=== PATIENT | male | born 1955 | race Caucasian/White ===

== ENCOUNTER 2020-09-01 08:09 | Day surgery (SDC) | payer OTHER, SELFPAY ==
[2020-08-25 09:51] VITALS: BMI 26.7
--- NOTE | 2020-08-31 10:27 | HO.ANESPROP2 ---
Documented by User: Gayle Fuller 08/31/20 10:28 HPI - Anesthesia Eval Consult details Narrative: 65yo M for Colonoscopy [facility] Past Medical History Medical History Diabetes HTN (hypertension) Hx of hyperlipidemia Family History Family History Father No problems noted. Mother No problems noted. Surgical History Surgical History No pertinent past surgical history Social History Social History Alcohol intake: never Smoking Status: Never smoker Tobacco Type: Cigarette Advance Directives: No Advance Directives Information Provided: No Advance Directives on File: No Recently lost weight without trying: No Meds Allergies Allergy/AdvReac Type Severity Reaction Status Date / Time No Known Allergies Allergy Verified 07/11/20 08:53 Home Medications Medication Instructions Recorded Confirmed Type atorvastatin 40 mg tablet 40 mg PO DAILY 07/11/20 08/25/20 History glyburide 5 mg tablet 5 mg PO QAM 07/11/20 08/25/20 History lisinopril 40 mg tablet 40 mg PO DAILY 07/11/20 08/25/20 History metformin 1,000 mg tablet 1,000 mg PO BID 07/11/20 08/25/20 History Exam Exam Date and Time: August 31, 2020 1027 Height,Weight and Vital Signs: Height 6 ft 1 in Weight 92.079 kg Assessment and Plan Assessment Anesthesia Assessment: Chart Reviewed Documented by User: Ebony Soto 09/01/20 10:16 [facility] Past Medical History Medical History Diabetes HTN (hypertension) Hx of hyperlipidemia Family History Family History Father No problems noted. Mother No problems noted. Surgical History Surgical History No pertinent past surgical history Social History Social History Alcohol intake: never Smoking Status: Never smoker Tobacco Type: Cigarette Advance Directives: No Advance Directives Information Provided: No Advance Directives on File: No Recently lost weight without trying: No Meds Allergies Allergy/AdvReac Type Severity Reaction Status Date / Time No Known Allergies Allergy Verified 07/11/20 08:53 Home Medications Medication Instructions Recorded Confirmed Type atorvastatin 40 mg tablet 40 mg PO DAILY 07/11/20 08/25/20 History glyburide 5 mg tablet 5 mg PO QAM 07/11/20 08/25/20 History lisinopril 40 mg tablet 40 mg PO DAILY 07/11/20 08/25/20 History metformin 1,000 mg tablet 1,000 mg PO BID 07/11/20 08/25/20 History Exam Airway Mallampati Class: II TM Dist: >3cm Neck ROM: Full Loose/Missing/Broken Teeth: No Heart: RRR Lungs: CTA Assessment and Plan Assessment Anesthesia Assessment: Anesthesia Plan Discussed and Chart Reviewed Final Anesthetic Review NPO: Yes ASA Class: II Patient Risk: Low Procedure Risk: Low Anesthetic Plan Anesthetic Plan: MAC: Disposition: Standard PACU
[2020-09-01 09:17] VITALS: BP 154/83; PULSE 78; RESP 16; TEMP 36.3; O2SAT 95
[2020-09-01] MEDS: Lactated Ringers 1,000 ML 100 ML IVCONT (09:26)
[2020-09-01 09:30] LABS: Glucose, Whole Blood 107 mg/dL (60-115)
--- NOTE | 2020-09-01 09:54 | MHC.SHP ---
Pre-Procedural Eval Section B Chief Complaint: Screening Relevant Family History (Specify if Yes): No Relevant Social History: None Present Medications: see Short Stay Collaborative assessment Medical History: Significant History (Diabetes HTN (hypertension) Hx of hyperlipidemia) History of Previous Operations: No relevant previous surgery Allergies: Allergies Allergy/AdvReac Type Severity Reaction Status Date / Time No Known Allergies Allergy Verified 07/11/20 08:53 Review of Systems Sugical H&P ROS: Negative: Constitution, Cardiovascular, Respiratory, Neurological, Psychiatric, Hem-Onc, Allergic/Immunologic, Gastrointestinal, Genitourinary, Musculoskeletal, Integumentary, Endocrine and Eyes/Ears/Nose/Throat Exam Surgical H&P Exam: Normal: HEENT, Normal: Heart, Normal: Lungs, Normal: Extremities, Normal: Abdomen, Normal: Skin and Normal: Neurological Plan Diagnosis/Plan: Unchanged I have reviewed the history and physical and performed a pertinent physical examination on my patient. No changes have occurred unless specified.
--- NOTE | 2020-09-01 10:57 | P.BOP_ITS ---
Brief Operative Note Date of Service: 09/01/20 Pre-op diagnosis: screening Post-op diagnosis: same Procedure: Operative Information Procedure Description: Colonoscopy COLONOSCOPY Instrument: Olympus variable stiffness pediatric scope 190L Colonoscopy Monitoring: Vital signs and clinical assessment, continuous EKG monitoring, Pulse oximetry, Carbon Dioxide monitoring and blood pressure monitoring were done throughout the procedure. Colon withdrawal time was 18 minutes. Procedure: The patient was placed in the left lateral decubitis position and pre-procedure medications were administered. After a digital rectal examination of the ano-rectum, the video colonoscope was inserted into the rectum and advanced through the colon to the cecum/TI. The colonoscope was slowly withdrawn in a retrograde panoramic fashion and the colon mucosa was carefully examined including a retroflexed view of the rectum. Findings and interventions are described below. Procedure Difficulty:moderate due to poor prep Findings: Terminal Ileum-normal Cecum:normal Ascending Colon: normal Transverse Colon -normal Descending Colon:normal Sigmoid Colon: 5-6 mm sessiel polyp removed with cold snare Rectum: Retroflexion with small internal hemorrhoids, grade I Anorectum - normal Colon preparation: [place] Bowel Preparation Scale Right colon; 1 Transverse colon: 0 Left colon; 1 (0 = Unprepared colon segment with mucosa not seen due to solid stool that cannot be cleared. 1 = Portion of mucosa of the colon segment seen, but other areas of the colon segment not well seen due to staining, residual stool and/or opaque liquid. 2 = Minor amount of residual staining, small fragments of stool and/or opaque liquid, but mucosa of colon segment seen well. 3 = Entire mucosa of colon segment seen well with no residual staining, small fragments of stool or opaque liquid) Impression and Post Procedure Diagnosis: poor prep polyp internal hemorrhoids Plan: High fiber diet leaflet Avoid straining at stool, epsom salts and sitz bath, anusol supps or cream Repeat Colonoscopy in 6 months- 1 year with review on prep and compliance Above findings were reviewed with the patient and relevant handouts were provided if indicated. Surgeon: Shavonne Goode MD Anesthesia: MAC Estimated blood loss (mL): 0 Condition: stable Disposition: PACU
[2020-09-01 11:04] VITALS: BP 93/58; PULSE 59; RESP 16; TEMP 36; O2SAT 94
[2020-09-01 11:19] VITALS: BP 107/65; PULSE 57; RESP 16; TEMP 36.1; O2SAT 96
[2020-09-01 11:30] VITALS: PULSE 63; RESP 16; O2SAT 96
--- NOTE | 2020-09-01 12:14 | HO.POSTANES ---
Post Anesthesia Evaluation Post Anesthesia Evaluation Vital Signs: Vital Signs Temp Pulse Resp BP Pulse Ox 09/01/20 11:30 97 F 63 16 96 09/01/20 11:19 97 F 57 16 107/65 96 09/01/20 11:04 96.8 F 59 16 93/58 L 94 09/01/20 09:17 97.3 F 78 16 154/83 H 95 Anesthesia: Monitored Mental Status: Awake Pain Control: Satisfactory Nausea/Vomiting: None Hydration: Adequate Anesthesia-Related Issues: No Anes. Related Issues
== END 2020-09-01 12:37 | disposition home or self-care (01) ==
PROVIDERS: PCP Physician Assistant; Visit Provider Internal Medicine Gastroenterology
PROC: 0DJD8ZZ Inspection of Lower Intestinal Tract, Via Natural or Artificial Opening Endoscopic (ICD-10-PCS; CPT 45378; principal; 2020-09-01 10:10)
DX: Z12.11 Encounter for screening for malignant neoplasm of colon (principal); K63.5 Polyp of colon; K64.0 First degree hemorrhoids; I10 Essential (primary) hypertension; E11.9 Type 2 diabetes mellitus without complications; Z79.84 Long term (current) use of oral hypoglycemic drugs; Z79.899 Other long term (current) drug therapy
CPT/HCPCS: 45385; 82947; 88305

== ENCOUNTER → 2020-09-13 11:11 | Outpatient (BNVA) | payer OTHER, SELFPAY | PROVIDERS: PCP Physician Assistant; Visit Provider Physician Assistant ==

== ENCOUNTER 2021-09-18 10:35 | Outpatient (REF) | payer OTHER, SELFPAY ==
[2021-09-18 11:11] LABS: Hematocrit 39.5 % (42.0-52.0); Hemoglobin 13.1 g/dl (14.0-18.0); Mean Corpuscular HGB Conc 33.2 g/dl (31.0-36.0); Mean Corpuscular Hemoglobin 29.2 pg (27.0-33.0); Mean Corpuscular Volume 88.2 fL (80.0-98.0); Mean Platelet Volume 10.1 fL (9.4-12.4); Platelet Count 215 X10*3/uL (160-400); Red Blood Count 4.48 X10*6/uL (4.60-5.80)
[2021-09-18 11:39] LABS: Alanine Aminotransferase 19 U/L (0-40); Albumin Level 4.4 g/dL (3.5-5.0); Alkaline Phosphatase 52 U/L (39-117); Anion Gap 12 (12-20); Aspartate Amino Transferase 20 U/L (5-37); Bilirubin Total 0.8 mg/dL (0.0-1.0); Blood Urea Nitrogen 14 mg/dL (9-16); Calcium 10.2 mg/dL (8.4-10.2); Carbon Dioxide 26 mmol/L (22-29); Chloride 106 mmol/L (96-108); Cholesterol 136 mg/dL; Estimated Glomerular Filt Rate > 60; Glucose Fasting 153 mg/dL (60-99); HDL Cholesterol 40 mg/dL; LDL Cholesterol Calculated 64 mg/dl; Potassium 4.9 mmol/L (3.3-5.1); Sodium 139 mmol/L (135-145); Total Protein 7.2 g/dL (6.5-8.0); Triglycerides 164 mg/dL
[2021-09-18 12:01] LABS: Prostate Specific Antigen Scr 0.31 ng/mL (<0.05-4.0); TSH reflex Free T4 1.97 uIU/mL (0.32-4.0)
[2021-09-18 12:05] LABS: Creatinine Urine 79.41 mg/dL
== END 2021-09-18 10:36 | disposition home or self-care (01) ==
LOC: HO.LAB 10:35
PROVIDERS: PCP Physician Assistant; Visit Provider Physician Assistant
DX: I10 Essential (primary) hypertension (principal); E11.9 Type 2 diabetes mellitus without complications; Z12.5 Encounter for screening for malignant neoplasm of prostate
CPT/HCPCS: 36415; 80053; 80061; 82043; 84153; 84443; 85027

== ENCOUNTER 2023-12-09 08:47 | Outpatient (REF) | payer OTHER, SELFPAY ==
[2023-12-09 09:25] LABS: Hematocrit 38.5 % (42.0-52.0); Hemoglobin 12.9 g/dl (14.0-18.0); Mean Corpuscular HGB Conc 33.5 g/dl (31.0-36.0); Mean Corpuscular Hemoglobin 29.4 pg (27.0-33.0); Mean Corpuscular Volume 87.7 fL (80.0-98.0); Mean Platelet Volume 10.4 fL (9.4-12.4); Platelet Count 212 X10*3/uL (160-400); Red Blood Count 4.39 X10*6/uL (4.60-5.80); White Blood Count 6.9 X10*3/uL (4.8-10.8)
[2023-12-09 09:40] LABS: Estimated Average Glucose 160 mg/dL; Hemoglobin A1c % 7.2 % (<6.0)
[2023-12-09 10:01] LABS: Alanine Aminotransferase 21 U/L (0-40); Albumin Level 4.4 g/dL (3.5-5.0); Alkaline Phosphatase 56 U/L (39-117); Anion Gap 12 (12-20); Aspartate Amino Transferase 20 U/L (5-37); Bilirubin Total 0.8 mg/dL (0.0-1.0); Blood Urea Nitrogen 32 mg/dL (9-16); Calcium 9.6 mg/dL (8.4-10.2); Carbon Dioxide 27 mmol/L (22-29); Chloride 105 mmol/L (96-108); Cholesterol 168 mg/dL (<200); Estimated Glomerular Filt Rate 54; Glucose Fasting 177 mg/dL (60-99); HDL Cholesterol 42 mg/dL (>40); LDL Cholesterol Calculated 93 mg/dL (<100); Potassium 4.7 mmol/L (3.3-5.1); Sodium 139 mmol/L (135-145); Total Protein 7.4 g/dL (6.5-8.0); Triglycerides 169 mg/dL (<150)
[2023-12-09 10:14] LABS: Prostate Specific Antigen Scr 0.35 ng/mL (<0.05-4.0)
[2023-12-09 10:25] LABS: Creatinine Urine 79.86 mg/dL; Microalbum/Creatinine Ratio Ur 81.3 ug/mg cr (<30)
== END 2023-12-09 08:48 | disposition home or self-care (01) ==
LOC: HO.LAB 08:47
PROVIDERS: PCP Physician Assistant; Visit Provider Physician Assistant
DX: Z12.5 Encounter for screening for malignant neoplasm of prostate (principal); I10 Essential (primary) hypertension; E11.9 Type 2 diabetes mellitus without complications; E78.2 Mixed hyperlipidemia
CPT/HCPCS: 36415; 80053; 80061; 82043; 82570; 83036; 84153; 85027

== ENCOUNTER 2023-12-16 08:42 | Outpatient (AMB) | payer OTHER, SELFPAY ==
--- NOTE | 2023-12-16 09:13 | MHC.PC.OV ---
Vital Signs 12/16/23 09:14 Height 6 ft Weight 205 lb 4 oz BMI 27.8 BP 128/70 Blood Pressure Location Lt brachial Position Sitting Pulse 78 Pulse Source Pulse Oximeter Pulse Oximetry (%) 97 Oxygen Delivery Method Room Air Intake Visit Reasons: PE and lab results Inspector Tubes Required: No Accompanied by: Self / Same As Patient Allergies No Known Allergies Allergy (Verified 12/16/23 09:23) Medication List - Last Reconciled 12/16/23 by Pedro Jones PA-C atorvastatin 40 mg PO DAILY 30 days blood sugar diagnostic (FreeStyle Lite Strips) As directed glyburide 5 mg PO QAM 30 days hydrochlorothiazide 12.5 mg PO DAILY 30 days lancets (FreeStyle Lancets) As directed lisinopril 40 mg PO DAILY 30 days metformin 1,000 mg PO BID 30 days Tobacco use date assessed: 12/16/23 Fall risk assessment: No Falls in past year Last assessed Fall Risk: 12/16/23 Dental Screening Dental Screen Date: 12/16/23 Did you have a dental visit in the last 12 months?: No Did you have a dental problem in the last 6 months where you did not have access to dental care?: No Was dental information given to patient?: No (Dentures) HPI PE and lab results HPI Details Mustaf is a 68 y/o F here today for a routine annual physical ? Pmhx of HLD, DMII, HTN. ? .. ? DMII: Has been working on diet to reduce carbs and sugars.? ? Continues on metformin 1000 b.i.d and glyburide 5 mg. Most recent A1c 7.2. . ? .. ? HTN: Does check his BP at home and reports normal reading, occasional high readings though generally reports systolic blood pressures are 130.? ?Patient denies any headaches, chest discomfort, shortness of breath VAccine: UTD with PCV, TDAp, considering Shingrex Patient did have colonoscopy in 2020 (did have internal hemorrhoids) needed repeat in 1 year due to poor. [facility] Medical History Hx of hyperlipidemia Diabetes HTN (hypertension) Surgical History No pertinent past surgical history Family History Father No problems noted. Mother No problems noted. Social History Housing: Apartment Alcohol intake: never Patient Tobacco Use Status: Never used Tobacco Tobacco use type: Cigarette e-Cigarette/Vaping Use: Never Used Second Hand Smoke Exposure: No service: No Current occupational status: employed Cognitive needs: No Hearing needs: No Vision needs: No Questionnaire PHQ-9 Over the last 2 weeks, how often have you been bothered by any of the following problems? 1. Little interest or pleasure in doing things: not at all 2. Feeling down, depressed, or hopeless: not at all 3. Trouble falling or staying asleep, or sleeping too much: not at all 4. Feeling tired or having little energy: not at all 5. Poor appetite or overeating: not at all 6. Feeling bad about yourself - or that you are a failure or have let yourself or your family down: not at all 7. Trouble concentrating on things, such as reading the newspaper or watching television: not at all 8. Moving or speaking so slowly that other people could have noticed. Or the opposite - being so fidgety or restless that you have been moving around a lot more than usual: not at all 9. Thoughts that you would be better off or of hurting yourself in some way: not at all Total score: 0 Depression Screening Interpretation: Negative Depression Screening Done: Yes 25131 - PHQ-9 Billing: Yes Source: Developed by Drs. Bashir Reynoso, Eloise Santa, Rock Garcia and colleagues, with an educational helen from [employer]. Thrive Questionnaire Date Thrive assessed: 12/16/23 I am a: Patient What is your living situation today?: I have a steady place to live Within the past 12 months, did the food you bought not last and you didn't have the money to get more?: Never true Within the past 12 months, did you worry whether your food would run out before you got money to buy more?: Never true Do you have trouble paying for medicines?: No Do you have trouble getting transportation to medical appointments?: No Do you have trouble paying your heating and electricity bill?: No Do you have trouble taking care of your child, family member or friend?: No Do you have trouble with day-to-day activities such as bathing, preparing meals, shopping, managing finances, etc.?: No Are you currently unemployed and looking for a job?: No Are you interested in more education?: No Please select the resources that you would like help with: None Currently or been in a relationship where the following occur: no concerns reported THRIVE Score: 0 AUDIT C Alcohol Use Questionnaire (AUDIT-C) 1. How often do you have a drink containing alcohol?: Never 3. How often do you have six or more drinks on one occasion?: Never Total Score: 0 SOFIA-7 AMB Questionnaire SOFIA-7 Date SOFIA - 7 assessed: 12/16/23 Feeling nervous, anxious, or on edge: 0 = Not at all Not being able to stop or control worryin = Not at all Worrying too much about different things: 0 = Not at all Trouble relaxin = Not at all Being so restless that it is hard to sit still: 0 = Not at all Becoming easily annoyed or irritable: 0 = Not at all Feeling afraid as if something awful might happen: 0 = Not at all Total SOFIA-7 score (0-4 normal; 5-9 mild; 10-14 moderate; 15-21 severe): 0 Source: Developed by Drs. Bashir Reynoso, Eloise Santa, Rock Garcia and colleagues, with an educational helen from [employer]. SOFIA-7 Assessment Billing SOFIA-7 Assessment Tool: SOFIA-7 Assessment 29035 Review of Systems Const Denies body aches, Denies chills, Denies excessive sweating, Denies fatigue, Denies fever(s) and Denies headache(s) Eyes Denies blurry vision ENT Denies dysphagia, Denies vertigo, Denies dizziness, Denies headache(s), Denies hearing loss and Denies tinnitus Card Denies chest pain, Denies chest pain with activity, Denies syncope, Denies irregular heart rhythm and Denies dyspnea Resp Denies chest congestion, Denies cough, Denies hemoptysis, Denies dyspnea and Denies wheezing GI Denies abdominal pain, Denies melena, Denies hematochezia, Denies coffee ground emesis, Denies dysphagia, Denies diarrhea, Denies nausea and Denies vomiting Denies difficulty urinating, Denies dysuria, Denies urinary frequency, Denies urinary hesitancy and Denies urinary urgency Musc Denies arthralgias, Denies limited range of motion, Denies muscle cramps and Denies muscle weakness Skin/Breast Denies rash and Denies skin ulcer Neuro Denies Abnormal speech present, Denies confusion, Denies vertigo, Denies dizziness, Denies syncope, Denies headache(s), Denies memory loss and Denies seizure-like activity Psych Denies anxiety, Denies confusion, Denies depression, Denies memory loss, Denies panic attacks and Denies paranoia Endo Denies excessive sweating, Denies fatigue, Denies flushing, Denies polydipsia and Denies polyuria Aller/Immun Denies wheezing Physical exam (Primary Care) Vital Signs: Last Vital Signs Pulse 78 12/16/23 09:14 BP 128/70 12/16/23 09:14 Pulse Ox 97 12/16/23 09:14 Oxygen Delivery Method Room Air 12/16/23 09:14 BMI result Body Mass Index 27.8 Tobacco/Smoking Status: Tobacco use Status Tobacco use date assessed 12/16/23 12/16/23 09:20 Patient Tobacco Use Status Never used Tobacco 12/16/23 09:14 Tobacco use type Cigarette 12/16/23 09:14 e-Cigarette/Vaping Use Never Used 12/16/23 09:14 PHQ-9: PHQ-9 Score PHQ-9: Total score 0 12/16/23 09:25 Depression Screening Interpretation: Negative Thrive Assessment: Date of Thrive Assessment Date Thrive assessed 12/16/23 12/16/23 09:20 Currently or been in a relationship where the following occur: no concerns reported Const General: cooperative, comfortable, no acute distress, alert and awake; No confusion Orientation/consciousness: oriented to person, oriented to place, patient oriented x3 and No confusion HENMT Head: Yes normocephalic Ears: external ears normal and TM's normal bilaterally Face and sinus: No sinus tenderness Mouth: Normal oral and palatal mucosa present and tongue normal Teeth and gingiva: dentition normal and gingiva normal Throat: Yes posterior oropharynx normal, Yes tonsils normal and Yes uvula midline Eyes Conjunctivae: conjunctivae normal Sclerae: sclerae normal Pupils: Equal, round and reactive pupils present EOM: EOMs intact bilaterally Direct Ophthalmoscopy: No no photophobia Neck Neck: Yes no lymphadenopathy, No tender and Yes no JVD Thyroid: Thyroid normal Carotids: no bruits Chest Chest palpation & inspection: no tenderness Resp Effort & Inspection: normal respiratory effort, no audible wheezes, not labored and no stridor Auscultation: no crackles, no rales, no rhonchi and no wheezes Cardio Jugular venous distension: no JVD Rate: regular rate, not bradycardic and not tachycardic Rhythm: regular rhythm Bruits: no carotid bruits Peripheral pulses: Peripheral pulses 2+ throughout GI Inspection: Yes normal to inspection, No abdominal wall ecchymosis and No visible herniation Palpation (GI): Soft to palpation, nontender, no guarding, not rigid and No hepatosplenomegaly present Auscultation: normoactive bowel sounds General: Yes no CVA tenderness Back/Spine/Pelvis Back: no CVA tenderness and No back tenderness Cervical Spine: cervical ROM normal Thoracic/Lumbar Spine: thoracic and lumbar spine normal to inspection, straight leg raise negative bilaterally, No thoraco-lumbar ROM limited and No lumbar spinal tenderness Skin Lesions: no lesions Rashes: no rashes Wounds: no wounds Neuro General: oriented to person, oriented to place, patient oriented x3, CN's II-XI intact bilaterally and No confusion Cranial nerves: Yes Equal, round and reactive pupils present and Yes Normal accommodation reflex present Cognition (Neuro): normal cognition Speech: No Abnormal speech present Gait exam (Neuro): Normal gait present Motor exam (neuro): 5/5 motor strength present throughout Extrem Right upper extremity: full ROM; no cyanosis Left upper extremity: full ROM; no cyanosis Right lower extremity: no edema Left lower extremity: no edema Psych Appearance: grossly normal Mental Status: mental status grossly normal Affect: normal affect Attitude: cooperative Thought process: Normal thought process present Assessment and Plan Assessment & Plan (1) Annual physical exam: Code(s): Z00.00 - Encounter for general adult medical examination without abnormal findings (2) HTN (hypertension): Code(s): I10 - Essential (primary) hypertension Qualifiers: Hypertension type: essential hypertension Qualified Code(s): I10 - Essential (primary) hypertension Plan: Patient's blood pressure acceptable today in office. Will continue him on his current dose of lisinopril and hydrochlorothiazide. Goal blood pressure to be below 140/90 (3) DMII (diabetes mellitus, type 2): Code(s): E11.9 - Type 2 diabetes mellitus without complications Qualifiers: Diabetes mellitus complication status: without complication Diabetes mellitus terminal operations supervisor insulin use: without terminal operations supervisor use Qualified Code(s): E11.9 - Type 2 diabetes mellitus without complications Plan: Patient's type 2 diabetes suboptimally controlled with A1c is 7.2. Will continue current doses of diabetic medication. He will work on lifestyle and dietary modifications. Goal A1c to be below 7.0. (4) HLD (hyperlipidemia): Code(s): E78.5 - Hyperlipidemia, unspecified Qualifiers: Hyperlipidemia type: mixed hyperlipidemia Qualified Code(s): E78.2 - Mixed hyperlipidemia Plan: Patient continues on statin therapy without any side effect. Most recent lipid panel with acceptable LDL below 100 Orders: Orders Lipid Panel 12/16/23 E78.2 - Mixed hyperlipidemia Comprehensive Grahn. Panel Fast 12/16/23 E11.9 - Type 2 diabetes mellitus without complications Referrals Ophthalmology Referral E11.9 - Type 2 diabetes mellitus without complications Cologuard Test Z12.11 - Encounter for screening for malignant neoplasm of colon Medications: Changed From atorvastatin 40 mg PO DAILY 30 days 30 tabs 0RF E78.2 - Mixed hyperlipidemia To atorvastatin 40 mg PO DAILY 90 days 90 tabs 2RF E78.2 - Mixed hyperlipidemia From glyburide 5 mg PO QAM 30 days 30 tabs 3RF E11.9 - Type 2 diabetes mellitus without complications To glyburide 5 mg PO QAM 90 days 90 tabs 2RF E11.9 - Type 2 diabetes mellitus without complications From lisinopril 40 mg PO DAILY 30 days 30 tabs 0RF I10 - Essential (primary) hypertension To lisinopril 40 mg PO DAILY 90 days 90 tabs 2RF I10 - Essential (primary) hypertension From hydrochlorothiazide 12.5 mg PO DAILY 30 days 30 caps 0RF I10 - Essential (primary) hypertension To hydrochlorothiazide 12.5 mg PO DAILY 90 days 90 caps 2RF I10 - Essential (primary) hypertension From metformin 1,000 mg PO BID 30 days 60 tabs 0RF E11.9 - Type 2 diabetes mellitus without complications To metformin 1,000 mg PO BID 90 days 180 tabs 2RF E11.9 - Type 2 diabetes mellitus without complications Patient Instructions: Goals: Maintain blood pressure below 140/90 Barriers: Access to medication Coding Level of Care Code Est Pt Prev Care >65y(89096) Diagnoses Annual physical exam Z00.00 Essential hypertension I10 Hypertension type: essential hypertension Type 2 diabetes mellitus without complication, without long-term current use of insulin E11.9 Diabetes mellitus complication status: without complication Diabetes mellitus terminal operations supervisor insulin use: without terminal operations supervisor use Mixed hyperlipidemia E78.2 Hyperlipidemia type: mixed hyperlipidemia Additional Codes SOFIA-7 Assessment Billing - SOFIA-7 Assessment Tool: SOFIA-7 Assessment [id number] ([id number])
[2023-12-16 09:14] VITALS: BP 128/70; PULSE 78; O2SAT 97; BMI 27.8
== END 2023-12-16 09:41 | disposition home or self-care (01) ==
PROVIDERS: PCP Physician Assistant; Visit Provider Physician Assistant
DX: Z00.00 Encounter for general adult medical examination without abnormal findings (principal); I10 Essential (primary) hypertension; E11.9 Type 2 diabetes mellitus without complications; E78.2 Mixed hyperlipidemia
CPT/HCPCS: 99397

== ENCOUNTER 2024-12-16 08:04 | Outpatient (AMB) | payer MEDICARE, SELFPAY ==
--- NOTE | 2024-12-16 08:46 | MHC.PC.OV ---
Vital Signs 12/16/24 08:48 Height 6 ft Weight 194 lb 6 oz BMI 26.4 BP 120/60 Blood Pressure Location Lt brachial Position Sitting Pulse 71 Pulse Source Pulse Oximeter Temp 97.3 F Temp Source Temporal Artery Scan Pulse Oximetry (%) 97 Oxygen Delivery Method Room Air Intake Visit Reasons: annual exam Intake Note: Patient is here today for a physical. Emulsification Operator Required: No Despatching And Receiving Clerk: Not Required per policy Accompanied by: Self / Same As Patient Allergies No Known Allergies Allergy (Verified 12/16/24 09:08) Medication List - Last Reconciled 12/16/24 by Pedro Jones PA-C atorvastatin 40 mg PO DAILY 90 days blood sugar diagnostic (FreeStyle Lite Strips) As directed glyburide 5 mg PO QAM 90 days hydrochlorothiazide 12.5 mg PO DAILY 90 days lancets (FreeStyle Lancets) As directed lisinopril 40 mg PO DAILY 90 days metformin 1,000 mg PO BID 90 days Tobacco use date assessed: 12/16/24 Fall risk assessment: No Falls in past year Last assessed Fall Risk: 12/16/24 Dental Screening Dental Screen Date: 12/16/24 Did you have a dental visit in the last 12 months?: No Did you have a dental problem in the last 6 months where you did not have access to dental care?: No Was dental information given to patient?: No HPI annual exam HPI Details Kostas is a 69 y/o F here today for a routine annual physical ? Pmhx of HLD, DMII, HTN. Patient now retired from his job. He is looking to has been 3-4 months in his home [place] [facility] ? .. ? DMII: Patient does report polydipsia and polyuria. Blood sugars likely not well controlled. Today's A1c at 12.6.? ? Continues on metformin 1000 b.i.d and glyburide 5 mg. Most recent A1c 12. PLAN: Will add on GLP 1 for glycemic control. . ? .. ? HTN: Does check his BP at home and reports normal reading, occasional high readings though generally reports systolic blood pressures are 130.? ?Patient denies any headaches, chest discomfort, shortness of breath VAccine: UTD with PCV, TDAp, considering Shingrex Patient did have colonoscopy in 2021 (did have internal hemorrhoids) needed repeat in 1 year due to poor. [facility] Medical History Hx of hyperlipidemia Diabetes HTN (hypertension) Surgical History No pertinent past surgical history Family History Father No problems noted. Mother No problems noted. Social History (Updated 12/16/24 @ 09:10 by Pedro Jones PA-C) Housing: Apartment Alcohol intake: never Patient Tobacco Use Status: Never used Tobacco Tobacco use type: Cigarette e-Cigarette/Vaping Use: Never Used Second Hand Smoke Exposure: No service: No Current occupational status: retired Cognitive needs: No Hearing needs: No Vision needs: No Questionnaire PHQ-9 Over the last 2 weeks, how often have you been bothered by any of the following problems? 1. Little interest or pleasure in doing things: not at all 2. Feeling down, depressed, or hopeless: not at all 3. Trouble falling or staying asleep, or sleeping too much: not at all 4. Feeling tired or having little energy: not at all 5. Poor appetite or overeating: not at all 6. Feeling bad about yourself - or that you are a failure or have let yourself or your family down: not at all 7. Trouble concentrating on things, such as reading the newspaper or watching television: not at all 8. Moving or speaking so slowly that other people could have noticed. Or the opposite - being so fidgety or restless that you have been moving around a lot more than usual: not at all 9. Thoughts that you would be better off or of hurting yourself in some way: not at all Total score: 0 Depression Screening Interpretation: Negative Depression Screening Done: Yes 75155 - PHQ-9 Billing: Yes Source: Developed by Drs. Bashir Reynoso, Eloise Santa, Rock Garcia and colleagues, with an educational helen from [employer]. Thrive Questionnaire Date Thrive assessed: 12/16/24 I am a: Patient What is your living situation today?: I have a steady place to live Within the past 12 months, did the food you bought not last and you didn't have the money to get more?: Never true Within the past 12 months, did you worry whether your food would run out before you got money to buy more?: Never true Do you have trouble paying for medicines?: No Do you have trouble getting transportation to medical appointments?: No Do you have trouble paying your heating and electricity bill?: No Do you have trouble taking care of your child, family member or friend?: No Do you have trouble with day-to-day activities such as bathing, preparing meals, shopping, managing finances, etc.?: No Are you currently unemployed and looking for a job?: No Are you interested in more education?: No Please select the resources that you would like help with: None Currently or been in a relationship where the following occur: No concerns reported THRIVE Score: 0 AUDIT C Alcohol Use Questionnaire (AUDIT-C) 1. How often do you have a drink containing alcohol?: Never Total Score: 0 SOFIA-7 AMB Questionnaire SOFIA-7 Date SOFIA - 7 assessed: 12/16/24 Feeling nervous, anxious, or on edge: 0 = Not at all Not being able to stop or control worryin = Not at all Worrying too much about different things: 0 = Not at all Trouble relaxin = Not at all Being so restless that it is hard to sit still: 0 = Not at all Becoming easily annoyed or irritable: 0 = Not at all Feeling afraid as if something awful might happen: 0 = Not at all Total SOFIA-7 score (0-4 normal; 5-9 mild; 10-14 moderate; 15-21 severe): 0 Source: Developed by Drs. Bashir Reynoso, Eloise Santa, Rock Garcia and colleagues, with an educational helen from [employer]. SOFIA-7 Assessment Billing SOFIA-7 Assessment Tool: SOFIA-7 Assessment 77067 Review of Systems Const Denies body aches, Denies chills, Denies excessive sweating, Denies fatigue, Denies fever(s) and Denies headache(s) Eyes Denies blurry vision ENT Denies dysphagia, Denies vertigo, Denies dizziness, Denies headache(s), Denies hearing loss and Denies tinnitus Card Denies chest pain, Denies chest pain with activity, Denies syncope, Denies irregular heart rhythm and Denies dyspnea Resp Denies chest congestion, Denies cough, Denies hemoptysis, Denies dyspnea and Denies wheezing GI Denies abdominal pain, Denies melena, Denies hematochezia, Denies coffee ground emesis, Denies dysphagia, Denies diarrhea, Denies nausea and Denies vomiting Denies difficulty urinating, Denies dysuria, Denies urinary frequency, Denies urinary hesitancy and Denies urinary urgency Musc Denies arthralgias, Denies limited range of motion, Denies muscle cramps and Denies muscle weakness Skin/Breast Denies rash and Denies skin ulcer Neuro Denies Abnormal speech present, Denies confusion, Denies vertigo, Denies dizziness, Denies syncope, Denies headache(s), Denies memory loss and Denies seizure-like activity Psych Denies anxiety, Denies confusion, Denies depression, Denies memory loss, Denies panic attacks and Denies paranoia Endo Denies excessive sweating, Denies fatigue, Denies flushing, Denies polydipsia and Denies polyuria Aller/Immun Denies wheezing Physical exam (Primary Care) Vital Signs: Last Vital Signs Temp 97.3 F 12/16/24 08:48 Pulse 71 12/16/24 08:48 BP 120/60 12/16/24 08:48 Pulse Ox 97 12/16/24 08:48 Oxygen Delivery Method Room Air 12/16/24 08:48 BMI result Body Mass Index 26.4 Tobacco/Smoking Status: Tobacco use Status Tobacco use date assessed 12/16/24 12/16/24 08:52 Patient Tobacco Use Status Never used Tobacco 12/16/24 08:46 Tobacco use type Cigarette 12/16/24 08:46 e-Cigarette/Vaping Use Never Used 12/16/24 08:46 PHQ-9: PHQ-9 Score PHQ-9: Total score 0 12/16/24 08:52 Depression Screening Interpretation: Negative Thrive Assessment: Date of Thrive Assessment Date Thrive assessed 12/16/24 12/16/24 08:52 Currently or been in a relationship where the following occur: No concerns reported Const General: cooperative, comfortable, no acute distress, alert and awake; No confusion Orientation/consciousness: oriented to person, oriented to place, patient oriented x3 and No confusion HENMT Head: Yes normocephalic Ears: external ears normal and TM's normal bilaterally Face and sinus: No sinus tenderness Mouth: Normal oral and palatal mucosa present and tongue normal Teeth and gingiva: dentition normal and gingiva normal Throat: Yes posterior oropharynx normal, Yes tonsils normal and Yes uvula midline Eyes Conjunctivae: conjunctivae normal Sclerae: sclerae normal Pupils: Equal, round and reactive pupils present EOM: EOMs intact bilaterally Direct Ophthalmoscopy: No no photophobia Neck Neck: Yes no lymphadenopathy, No tender and Yes no JVD Thyroid: Thyroid normal Carotids: no bruits Chest Chest palpation & inspection: no tenderness Resp Effort & Inspection: normal respiratory effort, no audible wheezes, not labored and no stridor Auscultation: no crackles, no rales, no rhonchi and no wheezes Cardio Jugular venous distension: no JVD Rate: regular rate, not bradycardic and not tachycardic Rhythm: regular rhythm Bruits: no carotid bruits Peripheral pulses: Peripheral pulses 2+ throughout GI Inspection: Yes normal to inspection, No abdominal wall ecchymosis and No visible herniation Palpation (GI): Soft to palpation, nontender, no guarding, not rigid and No hepatosplenomegaly present Auscultation: normoactive bowel sounds General: Yes no CVA tenderness Back/Spine/Pelvis Back: no CVA tenderness and No back tenderness Cervical Spine: cervical ROM normal Thoracic/Lumbar Spine: thoracic and lumbar spine normal to inspection, straight leg raise negative bilaterally, No thoraco-lumbar ROM limited and No lumbar spinal tenderness Skin Lesions: no lesions Rashes: no rashes Wounds: no wounds Neuro General: oriented to person, oriented to place, patient oriented x3, CN's II-XI intact bilaterally and No confusion Cranial nerves: Yes Equal, round and reactive pupils present and Yes Normal accommodation reflex present Cognition (Neuro): normal cognition Speech: No Abnormal speech present Gait exam (Neuro): Normal gait present Motor exam (neuro): 5/5 motor strength present throughout Extrem Right upper extremity: full ROM; no cyanosis Left upper extremity: full ROM; no cyanosis Right lower extremity: no edema Left lower extremity: no edema Psych Appearance: grossly normal Mental Status: mental status grossly normal Affect: normal affect Attitude: cooperative Thought process: Normal thought process present Results AMB Hemoglobin A1c AMB Hemoglobin A1c 12.6 % Last Edit by BERNARD Grace on 12/16/24 09:05 Results Reviewed Results Reviewed: Laboratory Last Values Hgb A1c (Clinic) 12.6 % (4.0-6.0) H 12/16/24 08:52 Coding Level of Care Code Est Pt Prev Care >65y(52873) Diagnoses Annual physical exam Z00.00 Type 2 diabetes mellitus without complication, without long-term current use of insulin E11.9 Diabetes mellitus fpc insulin use: without fpc use Diabetes mellitus complication status: without complication Mixed hyperlipidemia E78.2 Hyperlipidemia type: mixed hyperlipidemia Essential hypertension I10 Hypertension type: essential hypertension Additional Codes PHQ-9 - 29383 - PHQ-9 Billing: Yes ([id number]) SOFIA-7 Assessment Billing - SOFIA-7 Assessment Tool: SOFIA-7 Assessment 35982 ([id number]) Assessment & Plan Assessment & Plan (1) Annual physical exam: Code(s): Z00.00 - Encounter for general adult medical examination without abnormal findings Category: Medical Plan: As per HPI (2) DMII (diabetes mellitus, type 2): Code(s): E11.9 - Type 2 diabetes mellitus without complications Category: Medical Qualifiers: Diabetes mellitus fpc insulin use: without fpc use Diabetes mellitus complication status: without complication Qualified Code(s): E11.9 - Type 2 diabetes mellitus without complications Plan: Patient's type 2 diabetes suboptimally controlled. Continues on metformin a 1000 b.i.d. and glyburide 5 mg daily. He does admit to polydipsia and polyuria. Will add on Ozempic 0.25 and up titrate of 0.5 mg weekly for better glycemic control. (3) HLD (hyperlipidemia): Code(s): E78.5 - Hyperlipidemia, unspecified Category: Medical Qualifiers: Hyperlipidemia type: mixed hyperlipidemia Qualified Code(s): E78.2 - Mixed hyperlipidemia Plan: Patient continues on atorvastatin 40 mg. Will check lipid panel to ensure stable LDL. Goal LDL to be below 100 (4) HTN (hypertension): Code(s): I10 - Essential (primary) hypertension Category: Medical Qualifiers: Hypertension type: essential hypertension Qualified Code(s): I10 - Essential (primary) hypertension Plan: Patient's blood pressure acceptable today in office. Will continue his current dose of antihypertensive medication with goal blood pressure to remain below 140/90 Orders: Orders Comprehensive [place]. Panel Fast Today E11.9 - Type 2 diabetes mellitus without complications AMB Hemoglobin A1c Today E11.9 - Type 2 diabetes mellitus without complications Complete Blood Count no Diff Today E11.9 - Type 2 diabetes mellitus without complications Microalbumin, Random (w Creat) Today E11.9 - Type 2 diabetes mellitus without complications Prostate Specific Antigen Scr Today E11.9 - Type 2 diabetes mellitus without complications, Z12.5 - Encounter for screening for malignant neoplasm of prostate Lipid Panel Today E78.2 - Mixed hyperlipidemia Referrals Ophthalmology Referral E11.9 - Type 2 diabetes mellitus without complications Gastroenterology Referral Z98.890 - Other specified postprocedural states Medications: New semaglutide (Ozempic) for 4 weeks 0.5 mg (0.736 mL) subcut QWEEK 4 weeks 3 mL 3RF E11.9 - Type 2 diabetes mellitus without complications Patient Instructions: Goal: Blood pressure to remain below 140/90, A1c to be below 7.0, LDL to be below 100 Barriers: Adherence to physical activity and healthy eating habits
[2024-12-16 08:48] VITALS: BP 120/60; PULSE 71; TEMP 36.3; O2SAT 97; BMI 26.4
== END 2024-12-16 09:23 | disposition home or self-care (01) ==
PROVIDERS: PCP Physician Assistant; Visit Provider Physician Assistant
DX: Z00.00 Encounter for general adult medical examination without abnormal findings (principal); E11.9 Type 2 diabetes mellitus without complications; E78.2 Mixed hyperlipidemia; I10 Essential (primary) hypertension

== ENCOUNTER 2024-12-16 08:04 | Outpatient (REF) | payer MEDICARE, SELFPAY ==
[2024-12-16 11:11] LABS: Hematocrit 37.4 % (42.0-52.0); Hemoglobin 12.7 g/dl (14.0-18.0); Mean Corpuscular Hemoglobin 29.5 pg (27.0-33.0); Mean Corpuscular Volume 86.8 fL (80.0-98.0); Mean Platelet Volume 10.6 fL (9.4-12.4); Platelet Count 220 X10*3/uL (160-400); Red Blood Count 4.31 X10*6/uL (4.60-5.80); Red Cell Distribution Width 12.2 % (11.0-16.0); White Blood Count 5.1 X10*3/uL (4.8-10.8)
[2024-12-16 11:54] LABS: Alanine Aminotransferase 31 U/L (0-40); Albumin Level 4.4 g/dL (3.5-5.0); Alkaline Phosphatase 57 U/L (39-117); Anion Gap 13 (12-20); Aspartate Amino Transferase 39 U/L (5-37); Bilirubin Total 0.9 mg/dL (0.0-1.0); Blood Urea Nitrogen 24 mg/dL (9-16); Calcium 9.8 mg/dL (8.4-10.2); Carbon Dioxide 24 mmol/L (22-29); Chloride 103 mmol/L (96-108); Cholesterol 151 mg/dL (<200); Estimated Glomerular Filt Rate 52; Glucose Fasting 307 mg/dL (60-99); HDL Cholesterol 48 mg/dL (>40); LDL Cholesterol Calculated 80 mg/dL (<100); Potassium 4.5 mmol/L (3.3-5.1); Prostate Specific Antigen Scr 0.31 ng/mL (<0.05-4.0); Sodium 135 mmol/L (135-145); Total Protein 7.3 g/dL (6.5-8.0); Triglycerides 115 mg/dL (<150)
[2024-12-16 12:25] LABS: Creatinine Urine 91.04 mg/dL; Microalbum/Creatinine Ratio Ur 76.8 ug/mg cr (<30)
== END 2024-12-16 08:05 | disposition home or self-care (01) ==
LOC: HO.LAB 08:04
PROVIDERS: PCP Physician Assistant; Visit Provider Physician Assistant
DX: Z00.00 Encounter for general adult medical examination without abnormal findings (principal); E11.9 Type 2 diabetes mellitus without complications; E78.2 Mixed hyperlipidemia; I10 Essential (primary) hypertension; Z79.899 Other long term (current) drug therapy; Z12.5 Encounter for screening for malignant neoplasm of prostate
CPT/HCPCS: 36415; 80053; 80061; 82043; 82570; 83036; 84153; 85027; 96127; 99397